=== PATIENT | male | born 1990 | race Caucasian/White ===

== ENCOUNTER 2021-12-12 13:56 | Emergency (ER) | payer MEDICAID, SELFPAY ==
[2021-12-12 13:58] VITALS: BP 125/100; PULSE 114; RESP 18; TEMP 37; O2SAT 100; BMI 28.5
--- NOTE | 2021-12-12 14:40 | CT_ITS ---
STUDY: CTA HEAD AND NECK WITH CONTRAST REASON FOR EXAM: Male, 31 years old. Vision change RADIATION DOSAGE (If Supplied By Facility): CTDIvol = ( 28.08 ) mGy, DLP = ( 1475.48 ) mGycm TECHNIQUE: CT angiography was performed with a multi-detector CT scanner. Data acquisition was obtained from the skull base through the vertex following intravenous administration of IV 100mL Isovue-[id number]. MIP images were reconstructed from the axial data set. Post-processing of the angiographic images was performed, with multiplanar reformation and 3D reconstruction. Individualized dose optimization techniques were used for this CT. COMPARISON: No relevant priors. FINDINGS: Normal bilateral petrous carotid arteries. Normal right cavernous carotid artery with a normal supraclinoid bifurcation. Normal left cavernous carotid artery with a normal supraclinoid bifurcation. 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 Normal left A1 segments of the anterior cerebral artery. Normal intact anterior communicating artery (ACOM). Normal bilateral A2 segments of the anterior cerebral arteries. Normal right M1 and M2 segments of the middle cerebral arteries, with a normal M1 bifurcation. Normal left M1 and M2 segments of the middle cerebral arteries, with a normal M1 bifurcation. The right posterior communicating artery (PCOM) is not well-visualized. Normal left posterior communicating artery (PCOM). There is a small right vertebral artery with a dominant left vertebral artery. Normal basilar artery with a normal basilar bifurcation. The visualized bilateral superior cerebellar (SCA) arteries are normal. There is no demonstrated aneurysm of the upper [place] within the scope and limitation of this examination. There is no demonstrated abnormality of the visualized brain. AORTIC ARCH: Normal visualized aortic arch. Normal origins of the brachiocephalic, left common carotid, and left subclavian arteries. RIGHT CAROTID ARTERIES: Normal right common carotid artery (CCA). Normal right common carotid bulb. Normal origin of the right internal carotid (ICA) artery without a hemodynamically significant stenosis. Normal visualized cervical portion of the right internal carotid artery. Normal origin of the right external carotid artery (ECA). LEFT CAROTID ARTERIES: Normal left common carotid artery (CCA). Normal left common carotid bulb. Normal origin of the left internal carotid (ICA) artery without a hemodynamically significant stenosis. Normal visualized cervical portion of the left internal carotid artery. Normal origin of the left external carotid artery (ECA). VERTEBRAL ARTERIES: There is enhancement within the bilateral vertebral arteries with a small right vertebral artery, and a dominant left vertebral artery. CT/CTA Head AND Neck W/ Contrast IMPRESSION: 1. No intracranial great vessel stenosis. 2. No demonstrated aneurysm on this examination. 3. Patent bilateral vertebral arteries with dominant left side. Electronically Signed: James Francisco, at 15:44 EST ,
--- NOTE | 2021-12-12 14:43 | EDS_ITS ---
HPI History of Present Illness Chief Complaint: Eye Problem Informant: patient Narrative Narrative: Patient presents from urgent care secondary to vision change. He states when he woke at 1030 this morning he had right eye pain, redness, watering. He went to urgent care where fluorescein was applied. He states he was told there was no evidence of foreign body or abrasion. He reports the pain in his right eye is currently resolved and did not correlate with using any particular eyedrops or treatment. He continues to have blurred vision from his right eye. PFSH PFSH Medical History no medical history no medical history Home Medications NK 12/12/21 [History Last Taken Unknown] Allergy/AdvReac Type Severity Reaction Status Date / Time No Known Allergies Allergy Verified 12/12/21 13:57 Social History Smoking Status: Never smoker ROS ROS ED Constitutional Constitutional ED: Denies chills or fever(s) Eyes Eyes: Reports blurry vision right and change in vision right ENT ENT ED: Denies rhinorrhea or sore throat Cardiovascular Cardiovascular: Denies chest pain or palpitations Respiratory/Chest Respiratory/Chest: Denies cough or dyspnea Gastrointestinal Gastrointestinal: Denies abdominal pain, nausea or vomiting Musculoskeletal Musculoskeletal: Denies back pain or neck pain Integumentary Denies rash Neurologic Neurologic: Denies headache(s) or weakness Allergic/Immunologic Allergic/Immunologic ED: Denies urticaria EXAM Physical Exam Const Vital Signs: 12/12/21 13:58 Temperature 98.6 F Temperature Source Temporal Pulse Rate 114 H Respiratory Rate 18 Blood Pressure 125/100 H Blood Pressure Mean 108 Pulse Ox 100 Oxygen Delivery Method Room Air Positive well nourished and well developed General Appearance ED: well developed HEENT atraumatic Eyes General Eye ED: Yes normal appearance of both eyes and normal light reflex Alignment: alignment normal Periorbital: periorbital findings normal Eyelid: eyelids normal Conjunctiva: conjunctiva normal Sclera: sclera normal Cornea: cornea normal Pupil: PERRL and accommodation reflex normal Neck supple Resp normal respiratory effort and clear to auscultation bilaterally Cardio regular rate and regular rhythm GI non-tender Palpation: soft Extremity normal to inspection Neuro oriented x3 and no sensory deficits noted Sensorium / Orientation: alert Motor Exam: strength 5/5 throughout Skin Lesions: no lesions Rashes: no rashes MDM MDM MDM Narrative Medical decision making narrative: Patient has no eye pain at this time. Lab work and CTA of the head and neck obtained to further evaluate retinal artery. Lab Data Attestation: I reviewed the patient's lab results. Labs: Laboratory Results 12/12/21 12/12/21 14:55 14:55 WBC 6.9 RBC 5.19 Hgb 16.2 Hct 46.5 MCV 89.6 MCH 31.2 MCHC 34.8 RDW Std Deviation 37.9 RDW Coeff of [place] 11.6 Plt Count 256 MPV 8.6 Immature Gran % (Auto) 0.300 Neut % (Auto) 75.4 H Lymph % (Auto) 15.[address] [place] % (Auto) 8.1 Eos % (Auto) 0.3 Baso % (Auto) 0.4 Absolute Neuts (auto) 5.2 Absolute Lymphs (auto) 1.07 Nucleated RBC % 0 Sodium 138 Potassium 3.5 Chloride 107 Carbon Dioxide 25.0 Anion Gap 6 BUN 15 Creatinine 1.09 Estim Creat Clear Calc 105.54 Est GFR (MDRD) Af Amer 102 Est GFR (MDRD) Non-Af 84 BUN/Creatinine Ratio 13.8 Glucose 109 H Calcium 9.1 Radiography Diagnostic Testing: Radiology Impression Head/Neck CTA 12/12/21 14:40 IMPRESSION: 1. No intracranial great vessel stenosis. 2. No demonstrated aneurysm on this examination. 3. Patent bilateral vertebral arteries with dominant left side. Electronically Signed: James Francisco, at 15:44 EST , Treatment and Re-Evaluation Comments:: Lab work and CTA is unremarkable. I spoke with Dr. Flaherty, on-call for ophthalmology. She did suggest the patient may have a retinal erosion which can heal over in a couple hours and not be present on fluorescein stain. She did recommend erythromycin ointment 4 times a day and at bedtime. Patient is to follow-up with Dr. Flaherty. I did go back and do a slit-lamp examination. No acute abnormalities noted on my evaluation. Discharge Plan Triage Chief Complaint: Eye Problem ED Provider: Ricarda Silva Dx/Rx/DC Orders Clinical Impression: Vision changes Instructions: ED Blurred Vision Prescriptions: No Action NK RF: 0 Primary Care Provider: Care Physician,No Primary Referrals: Jenifer Flaherty MD [STAFF PHYSICIAN] - 3-5 Days Care Physician,No Primary [Primary Care Provider] - Activity Restrictions/Additional Instructions: Use the erythromycin ointment 4 times a day and at bedtime for the next several days. Follow-up with Dr. Flaherty in the next 3 to 5 days. Disposition Disposition: Home, Self Care
[2021-12-12 15:05] LABS: Absolute Lymphocyte Count 1.07 X10^3/uL (0.83-4.51); Absolute Neutrophil Count 5.2 X10^3/uL (2.0-7.7); Basophil# 0.03 X10^3/uL; Basophil% 0.4 % (0-1); Eosinophil# 0.02 X10^3/uL; Eosinophils% 0.3 % (0-5); Hematocrit 46.5 % (40-54); Hemoglobin 16.2 g/dL (13.0-16.5); Lymphocyte # 1.07 X10^3/ul (0.83-4.51); Lymphocyte % 15.5 % (19-41); Mean Corp Hgb Conc 34.8 g/dL (32-36); Mean Corpuscular Hgb 31.2 pg (27.0-32.0); Mean Corpuscular Volume 89.6 fL (80-94); Mean Platelet Vol. 8.6 fl (6.2-12.0); Monocyte# 0.56 X10^3/uL; Monocyte% 8.1 % (0-10); NRBC Flagged by Analyzer 0 % (0-5); Neutrophil # 5.22 X10^3/uL (2.7-7.7); Neutrophil % 75.4 % (47-70); Platelet Count 256 K/mm3 (150-450); RBC Distribution Width CV 11.6 % (11.6-14.6); RBC Distribution Width SD 37.9 fl (35.1-43.9); Red Blood Count 5.19 M/mm3 (4.6-6.2); White Blood Count 6.9 K/mm3 (4.4-11.0)
[2021-12-12 15:19] LABS: Anion Gap 6 (5-15); BUN 15 mg/dL (7-18); BUN/Creat Ratio 13.8 RATIO (10-20); Calcium,Total 9.1 mg/dL (8.5-10.1); Chloride 107 mmol/L (98-107); Creatinine, Serum 1.09 mg/dL (0.70-1.30); EST Glomerular Filtration Rate 84 mL/min (>60); Est Glom Filt Rate - Afr Amer 102 mL/min (>60); Estimated Creatinine Clearance 105.54 ml/min; Glucose 109 mg/dL (74-106); Potassium 3.5 mmol/L (3.5-5.1); Sodium Level 138 mmol/L (136-145)
[2021-12-12] MEDS: Erythromycin Base 1 OPTH.TUBE 1 APPLIC RIGHT EYE (16:37)
== END 2021-12-12 16:44 | disposition home or self-care (01) ==
PROVIDERS: Emergency Provider Emergency Medicine; Visit Provider Emergency Medicine
DX: H53.8 Other visual disturbances (principal); H57.11 Ocular pain, right eye
CPT/HCPCS: 70496; 70498; 80048; 85025; 99284; J7030; Q9967